=== PATIENT | male | born 1985 | race Hispanic/Latino ===

== ENCOUNTER 2024-03-07 13:38 | Emergency (ER) | payer BC, SELFPAY ==
[2024-03-07] MEDS ORDERED: NA CHLORIDE 0.9% 1,000 ML ONE (14:42)
[2024-03-07 14:50] LABS: Urine Bilirubin NEGATIVE (Negative); Urine Blood Negative (Negative); Urine Clarity Clear (Clear); Urine Color Light-Yellow (Yellow); Urine Glucose NEGATIVE (Negative); Urine Ketones NEGATIVE (Negative); Urine Microscopic Reflex YN NO UMIC; Urine Nitrite NEGATIVE (Negative); Urine Protein NEGATIVE (Negative); Urine Urobilinogen Normal (Normal)
[2024-03-07 14:50] LABS: Absolute Basophils 0.1 K/uL (0-0.5); Absolute Eosinophils 0.1 K/uL (0-0.5); Absolute Lymphocytes (CBC) 1.7 K/uL (0.7-4.9); Absolute Monocytes 0.8 K/uL (0.1-1.3); Absolute Neutrophil 7.3 K/uL (1.8-8.0); Basophils % 0.7 % (0-1.3); Eosinophils % 0.6 % (0-4.4); Hematocrit 44.9 % (39.6-49.0); Hemoglobin 15.4 g/dL (13.6-17.9); Lymphocytes % 16.8 % (15.3-44.8); MCH 32.1 pg (27.0-35.0); MCHC 34.3 g/dL (32.0-36.0); MCV 93.6 fL (80-100); MPV 9.5 fL (7.6-11.3); Monocytes % 8.5 % (3.3-12.3); Neutrophils % 73.4 % (41.7-73.7); Platelets 248 thou/uL (152-406); RBC Red Blood Cell Count 4.79 M/uL (4.33-5.43); Red Cell Distribution Width 12.5 % (12.1-15.2)
--- OUTSIDE RECORDS SUMMARY | 2024-03-07 14:50 | XMS REPORT | Continuity of Care Document ---
Author Name Unknown Address [address] [place] [address] [facility] Address [address] [place] [address] Care Team Providers Care Drawing Box Tender Name Role Phone RENETTA OBRIEN Primary Care Physician Unavailab BETHEL Hatch Attending Clinician Unavailable BETHEL BLACKMON Attending Clinician Unavailable Doctor Unassigned, [place] Attending Clinician U RENETTA Elizabeth Attending Clinician Unavailable 2, [facility] Attending Clinician Unavailable Renetta Mcgowan Attending Clinician [phone] ABHAY LAM Attending Clinician Unavailable GENARO CROWLEY Attending Clinician Unavailable Genaro Crowley MD Attending Clinician [phone] CHEYENNE JUAREZ Attending Clinician Unavailable Cheyenne Oritz Attending Clinician [phone] Unknown, Attending Attending Clinician Unavailab [facility] Attending Clinician Unavailable Aries Cancino RN Attending Clinician UnavailOVI Hudson Attending Clinician Unavailable Ovi Gavin Attending Clinician [phone] Estefani Harris Attending Clinician [phone] ESTEFANI LEHMAN Attending Clinician Unavailable Katelyn Vogel MD Attending Clinician [phone] KATELYN VOGEL Attending Clinician Unavailable Samantha Lizarraga NP Attending Clinician [phone] SAMANTHA LIZARRAGA Attending Clinician Unavailable Móinca Hdz Attending Clinician MÓNICA ALCALA Attending Clinician Unavailabl e SAMANTHA LIZARRAGA Admitting Clinician Unavailable MÓNICA ALCALA Admitting Clinician Unavailrell e Payers Payer Name Policy Type Policy Number Effective Date Expirati on Date Source [facility] [id number] 2022 00:00:00 [facility] [id number] 2019 00:00:00 2019 00:00:00 Problems Condition Name Condition Details Condition Category Status Onset Date Resolution Date Last Treatment Date Treating Clinician Comments Source No known active problems No known active problems Disease [facility] Allergies, Adverse Reactions, Alerts Allergy Name Allergy Type Status Severity Reaction(s) Onset Date Inactive Date Treating Clinician Comments Source NO KNOWN ALLERGIE S Drug Class Active [facility] Social History Social Habit Start Date Stop Date Quantity Comments Source History SDOH Alcohol Frequency [facility] History SDOH Alcohol Std Drinks [facility] History SDOH Alcohol Binge [facility] of tobacco use Current smoker [facility] Alcohol intake 2023-10-29 00:00:00 2023-10-29 00:00:00 .57 /d [facility] Alcohol Comment 2023-10-29 00:00:00 2023-10-29 00:00:00 occassionally/so cially [facility] History of Social function 2023-10-29 00:00:00 2023-10-29 00:00:00 [facility] Alcoholic beverage intake 2023-10-29 00:00:00 2023-10-29 00:00:00 .57 /d [facility] Exposure to SARS-CoV-2 (event) 2022-11-13 00:00:00 2022-11-23 09:04:00 Not sure [facility] Tobacco use and exposure 2022-05-19 00:00:00 2022-05-19 00:00:00 Smokeless tobacco non-user [facility] Sex assigned at 1985 00:00:00 1985 00:00:00 [facility] Smoking Status Start Date Stop Date Source Ex-smoker 2022-05-19 00:00:00 2022-05-19 00:00:00 U [facility] Medications Ordered Medication Name Filled Medication Name Start Date Stop Date Current Medication? Ordering Clinician Indication Dosage Frequency Signature (SIG) Comments Components Source atorvastati n 40 mg tablet 10-28 08:15: 18 10-28 00:00 :00 No 40mg Take 1 tablet by mouth at bedtime. [facility] ondansetron 4 mg disintegrat ing tablet 2022-07 00:00: 00 Yes [id number] 4mg Take 1 tablet by mouth every 4 (four) hours as needed for Nausea and Vomiting (N/V). [facility] oseltamivir (TAMIFLU) 75 mg capsule 2022-07 00:00: 00 Yes [id number] 75mg Take 1 capsule by mouth in the morning and 1 capsule in the evening. [facility] loratadine 10 mg tablet 2022-07 00:00: 00 10-28 00:00 :00 No [id number] 10mg Take 1 tablet by mouth in the morning. [facility] naproxen 500 mg tablet 2022-07 00:00: 00 07-20 05:59 :00 No [id number] 500mg Take 1 tablet by mouth in the morning and 1 tablet in the evening. Take with meals. Do all this for 10 days. [facility] benzonatate 100 mg capsule 2021-07 00:00: 00 10-28 00:00 :00 No [id number] 200mg Take 2 capsules by mouth every 8 (eight) hours as needed for Cough. [facility] promethazin e-dextromet horphan 6.25-15 mg/5 mL syrup 2021-07 00:00: 00 10-28 00:00 :00 No [id number] 5mL Take 5 mL by mouth 4 (four) times daily as needed for Cough. [facility] methocarbam oL (ROBAXIN) tablet 1,500 mg 2020-07 03:00: 00 05-05 01:55 :00 No 1500mg 1,500 mg, Oral, ONCE, 1 dose, On Wed05/04/21 at 2200, Routine [facility] gabapentin (NEURONTIN) capsule 200 mg 2020-07 03:00: 00 05-05 01:56 :00 No 200mg 200 mg, Oral, ONCE NOW, 1 dose, On Wed05/04/21 at 2200, Routine [facility] dexamethaso ne (DECADRON PHOSPHATE) injection 10 mg 2020-07 03:00: 00 05-05 01:55 :00 No 10mg 10 mg, Slow IV Push, ONCE, 1 dose, On Wed05/04/21 at 2200, STAT [facility] ketorolac (TORADOL) injection 30 mg 2020-07 03:00: 00 05-05 01:54 :00 No 30mg 30 mg, Slow IV Push, ONCE, 1 dose, On Wed05/04/21 at 2200, Routine
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 [facility] methocarbam oL 500 mg tablet 2020-07 00:00: 00 05-10 04:59 :00 No [id number] 4 1500mg Take 3 tablets by mouth 4 (four) times daily as needed (spasms) for up to 5 days. [facility] methylPREDN ISolone 4 mg tablets 2020-07 00:00: 00 10-28 00:00 :00 No [id number] 4 Take by mouth SEE-INSTRU CTIONS. follow package directions [facility] cyclobenzap rine 10 mg tablet 2017-07 00:00: 00 10-28 00:00 :00 No [id number] 10mg Take 1 tablet by mouth 3 (three) times daily as needed for Muscle Spasms. [facility] fluticasone 50 mcg/actuati on nasal spray 02-22 00:00: 00 10-28 00:00 :00 No [id number] 2{spray } Use 2 Sprays in each nostril daily. [facility] Vital Signs Vital Name Observation Time Observation Value Comments S ource Systolic blood pressure 2023-10-29 13:06:00 114 mm[Hg] [facility] Diastolic blood pressure 2023-10-29 13:06:00 79 mm[Hg] [facility] Heart rate 2023-10-29 13:06:00 84 /min [facility] Body temperature 2023-10-29 13:06:00 36.72 Rosetta [facility] Body height 2023-10-29 13:06:00 177.8 cm [facility] Body weight 2023-10-29 13:06:00 83.416 kg [facility] BMI 2023-10-29 13:06:00 26.39 kg/m2 [facility] Oxygen saturation in Arterial blood by Pulse oximetry 2023-10-29 13:06:00 97 /min [facility] Systolic blood pressure 2023-07-09 12:53:00 129 mm[Hg] [facility] Diastolic blood pressure 2023-07-09 12:53:00 103 mm[Hg] [facility] Heart rate 2023-07-09 12:53:00 64 /min [facility] Body temperature 2023-07-09 12:53:00 37 Rosetta [facility] Respiratory rate 2023-07-09 12:53:00 16 /min [facility] Body height 2023-07-09 12:53:00 177.8 cm [facility] Body weight 2023-07-09 12:53:00 78.926 kg [facility] BMI 2023-07-09 12:53:00 24.97 kg/m2 [facility] Oxygen saturation in Arterial blood by Pulse oximetry 2023-07-09 12:53:00 98 /min [facility] Systolic blood pressure 2022-11-23 14:15:00 107 mm[Hg] [facility] Diastolic blood pressure 2022-11-23 14:15:00 80 mm[Hg] [facility] Heart rate 2022-11-23 14:15:00 69 /min [facility] Body temperature 2022-11-23 14:15:00 36.44 Rosetta [facility] Respiratory rate 2022-11-23 14:15:00 17 /min [facility] Body weight 2022-11-23 14:15:00 83.008 kg [facility] BMI 2022-11-23 14:15:00 26.26 kg/m2 [facility] Oxygen saturation in Arterial blood by Pulse oximetry 2022-11-23 14:15:00 98 /min [facility] Systolic blood pressure 2022-10-01 20:49:00 128 mm[Hg] [facility] Diastolic blood pressure 2022-10-01 20:49:00 84 mm[Hg] [facility] Heart rate 2022-10-01 20:49:00 71 /min [facility] Body temperature 2022-10-01 20:49:00 36.83 Rosetta [facility] Respiratory rate 2022-10-01 20:49:00 17 /min [facility] Body height 2022-10-01 20:49:00 177.8 cm [facility] Body weight 2022-10-01 20:49:00 82.691 kg [facility] BMI 2022-10-01 20:49:00 26.16 kg/m2 [facility] Oxygen saturation in Arterial blood by Pulse oximetry 2022-10-01 20:49:00 98 /min [facility] Systolic blood pressure 2022-08-21 14:10:00 129 mm[Hg] [facility] Diastolic blood pressure 2022-08-21 14:10:00 86 mm[Hg] [facility] Heart rate 2022-08-21 14:10:00 69 /min [facility] Body height 2022-08-21 14:10:00 177.8 cm [facility] Body weight 2022-08-21 14:10:00 80.74 kg [facility] BMI 2022-08-21 14:10:00 25.54 kg/m2 [facility] Oxygen saturation in Arterial blood by Pulse oximetry 2022-08-21 14:10:00 99 /min [facility] Systolic blood pressure 2022-08-05 15:33:00 124 mm[Hg] [facility] Diastolic blood pressure 2022-08-05 15:33:00 84 mm[Hg] [facility] Heart rate 2022-08-05 15:32:00 85 /min [facility] Body temperature 2022-08-05 15:32:00 36.89 Rosetta [facility] Respiratory rate 2022-08-05 15:32:00 16 /min [facility] Body weight 2022-08-05 15:32:00 80.74 kg [facility] BMI 2022-08-05 15:32:00 25.54 kg/m2 [facility] Oxygen saturation in Arterial blood by Pulse oximetry 2022-08-05 15:32:00 97 /min [facility] Systolic blood pressure 2022-05-19 22:23:00 115 mm[Hg] [facility] Diastolic blood pressure 2022-05-19 22:23:00 77 mm[Hg] [facility] Heart rate 2022-05-19 22:23:00 102 /min [facility] Body temperature 2022-05-19 22:23:00 36.89 Rosetta [facility] Respiratory rate 2022-05-19 22:23:00 18 /min [facility] Body height 2022-05-19 22:23:00 177.8 cm [facility] Body weight 2022-05-19 22:23:00 82.81 kg [facility] BMI 2022-05-19 22:23:00 26.19 kg/m2 [facility] Oxygen saturation in Arterial blood by Pulse oximetry 2022-05-19 22:23:00 98 /min [facility] Systolic blood pressure 2021-05-05 02:00:00 152 mm[Hg] [facility] Diastolic blood pressure 2021-05-05 02:00:00 88 mm[Hg] [facility] Heart rate 2021-05-05 02:00:00 72 /min [facility] Respiratory rate 2021-05-05 02:00:00 17 /min [facility] Oxygen saturation in Arterial blood by Pulse oximetry 2021-05-05 02:00:00 98 /min [facility] Body temperature 2021-05-05 01:10:00 36.83 Rosetta [facility] Body height 2021-05-05 01:10:00 177.8 cm [facility] Body weight 2021-05-05 01:10:00 86.183 kg [facility] BMI 2021-05-05 01:10:00 27.26 kg/m2 [facility] Procedures Procedure Date / Time Performed Performing Clinician Source ASSIGNMENT OF BENEFITS 2023-07-09 13:30:01 Docto r Unassigned, [place] [facility] RAPID INFLUENZA A/B 2023-07-09 13:04:00 Carie Crowley [facility] COVID-19 (ID NOW RAPID TESTING) 2023-07-09 13:04:00 Genaro Crowley [facility] CONSENT/REFUSAL FOR DIAGNOSIS AND TREATMENT 2023-07-09 12:44:46 Doctor Unassigned, [place] [facility] POCT MOLECULAR STREP 2022-11-23 14:13:00 Estefanía, Rowan horan [facility] POCT SARS-COV-2 ANTIGEN (BINAX NOW) 2022-10-01 21:31:00 Ovi Nunez [facility] POCT MOLECULAR FLU 2022-10-01 21:21:00 Unknown, Attend [facility] POCT MOLECULAR STREP 2022-10-01 20:53:00 Unknown, Attdavid horan [facility] PATIENT FINANCIAL POLICY 2022-10-01 20:45:27 Doctor Unassigned, [place] [facility] XR FOOT 3+ VW LEFT 2022-08-05 15:56:38 Ovi Nunez [facility] ASSIGNMENT OF BENEFITS 2022-08-05 15:28:24 Docto r Unassigned, [place] [facility] POCT MOLECULAR FLU 2022-05-19 22:40:00 Unknown, Attend [facility] POCT MOLECULAR STREP 2022-05-19 22:33:00 Unknown, Attdavid horan [facility] POCT SARS-COV-2 ANTIGEN (BINAX NOW) 2022-05-19 22:30:00 Katelyn Vogel [facility] CONSENT/REFUSAL FOR DIAGNOSIS AND TREATMENT 2022-05-19 22:17:49 Doctor Unassigned, [place] [facility] CT STROKE ANGIOGRAM HEAD 2021-05-05 02:30:00 Arley Lizarraga [facility] CT STROKE ANGIOGRAM NECK 2021-05-05 02:30:00 Arley Lizarraga [facility] CT CERVICAL SPINE WO CONTRAST 2021-05-05 02:23:00 Samantha Lizarraga [facility] CT HEAD WO CONTRAST 2021-05-05 02:23:00 Samantha Lizarraga [facility] COMP. METABOLIC PANEL ([id number]) 2021-05-05 01:49:00 Samantha Lizarraga [facility] ETHANOL 2021-05-05 01:49:00 Samantha Lizarraga [facility] SEDIMENTATION RATE 2021-05-05 01:49:00 Samantha Lizarraga [facility] CBC WITH DIFF 2021-05-05 01:49:00 Samantha Lizarraga [facility] URINALYSIS 2021-05-05 01:49:00 Samantha Lizarraga [facility] URINE DRUG (IMMUNOASSAY) - COMPREHENSIVE DRUG SCREEN W/O REFLEX 2021-05-05 01:49:00 Samantha Lizarraga [facility] POCT GLUCOSE (AUTOMATED) 2021-05-05 01:06:00 Doc tor Unassigned, [place] [facility] Encounters Start Date/Time End Date/Time Encounter Type Admission Type Attending [facility] Care Department Encounter ID Source 2024-02-16 19:18:00 2024-02-16 21:44:00 Emergency X BETHEL BLACKMON [facility] ERT [id number] [facility] 2023-11-11 00:00:00 2023-12-18 18:12:45 Patient Secure Msg Doctor Unassigned, [place] [facility] MÓNICA GILLESPIE PLAZACHARY 1.2.840.114 350.1.13.10 4.2.7.2.686 [id number] [facility] 2023-11-01 00:00:00 2023-12-04 18:08:39 Patient Secure Msg Doctor Unassigned, [place] [facility] 1.2.840.114 350.1.13.10 4.2.7.2.686 [id number] [facility] 2023-11-12 14:30:00 2023-11-12 14:30:00 Outpatient RENETTA MCKEON [facility] [id number] [facility] 2023-10-29 10:30:00 2023-10-29 10:45:00 Qa Manager Visit 2, Adc Lab Yon Obrienssica [facility] 1.2.840.114 350.1.13.10 4.2.7.2.686 [id number] [facility] 2023-10-29 10:00:00 2023-10-29 10:00:00 Outpatient ABHAY JEAN [facility] [id number] [facility] 2023-10-29 08:00:00 2023-10-29 08:31:55 Outpatient RENETTA MCKEON [facility] [id number] [facility] 2023-10-29 08:00:00 2023-10-29 08:31:55 Office Visit Renetta Obrien [facility] 1.2.840.114 350.1.13.10 4.2.7.2.686 [id number] [facility] 2023-10-29 00:00:00 2023-10-29 00:00:00 Letter (Out) Yon Obrienssica [facility] 1.2.840.114 350.1.13.10 4.2.7.2.686 [id number] [facility] 2023-10-29 00:00:00 2023-10-29 00:00:00 [facility] 1..840.114 350.1.13.10 4.2.7.2.686 [id number] [facility] 2023-07-09 06:55:00 2023-07-09 08:44:00 Emergency X GENARO CROWLEY [facility] [id number] [facility] 2023-07-09 06:55:00 2023-07-09 08:44:00 Emergency Keo Genaro [facility] 1..840.114 350.1.13.10 4.2.7.2.686 [id number] [facility] 2022-11-23 09:00:00 2022-11-23 09:29:54 Outpatient R CHEYENNE JUAREZ [facility] [id number] [facility] 2022-11-23 09:00:00 2022-11-23 09:29:54 Urgent Care Cheyenne Juarez Unknown, Attending [facility] 1..840.114 350.1.13.10 4.2.7.2.686 [id number] [facility] 2022-11-23 00:00:00 2022-11-23 00:00:00 Letter (Out) Provider, Christopher [facility] 1.84.114 350.1.13.10 4.2.7.2.686 [id number] [facility] 2022-10-02 00:00:00 2022-10-02 00:00:00 Letter (Out) Aries Cancino [facility] 1..114 350.1.13.10 4.2.7.2.686 [id number] [facility] 2022-10-01 15:40:00 2022-10-01 16:36:00 Outpatient R OVI NUNEZ [facility] [id number] [facility] 2022-10-01 15:40:00 2022-10-01 16:36:00 Urgent Care Ovi Nunez Unknown, Attending [facility] 1.84114 350.1.13.10 4.2.7.2.686 [id number] [facility] 2022-10-01 00:00:00 2022-10-01 00:00:00 Orders Only Doctor Unassigned, [place] [facility] 1.114 350.1.13.10 4.2.7.2.686 [id number] [facility] 2022-08-21 08:15:00 2022-08-21 08:45:00 Office Visit Estefani Lehman [facility] 1.84.114 350.1.13.10 4.2.7.2.686 [id number] [facility] 2022-08-21 08:15:00 2022-08-21 08:15:00 Outpatient R ESTEFANI LEHMAN [facility] [id number] [facility] 2022-08-21 00:00:00 2022-08-21 00:00:00 Letter (Out) Estefani Lehman [facility] 1.2840.114 350.1.13.10 4.2.7.2.686 [id number] [facility] 2022-08-05 09:44:02 2022-08-05 23:59:00 Outpatient R OVI NUNEZ [facility] [id number] [facility] 2022-08-05 09:44:02 2022-08-05 23:59:00 Hospital Encounter Greg Nunezjaime [facility] 1.84114 350.1.13.10 4.2.7.2.686 [id number] [facility] 2022-08-05 09:20:00 2022-08-05 10:08:21 Urgent Care FredyOvi lea Unknown, Attending [facility] 1.20.114 350.1.13.10 4.2.7.2.686 [id number] [facility] 2022-08-05 00:00:00 2022-08-05 00:00:00 Orders Only Doctor Unassigned, [place] [facility] 1.114 350.1.13.10 4.2.7.2.686 [id number] [facility] 2022-08-05 00:00:00 2022-08-05 00:00:00 Letter (Out) Greg Nunezjaime [facility] 1.284114 350.1.13.10 4.2.7.2.686 [id number] [facility] 2022-05-19 19:20:00 2022-05-19 19:40:00 Urgent Care Katelyn Vogel Unknown, Attending [facility] 1.2.840.114 350.1.13.10 4.2.7.2.686 [id number] [facility] 2022-05-19 19:20:00 2022-05-19 19:20:00 Outpatient R KATELYN VOGEL [facility] [id number] [facility] 2022-05-19 00:00:00 2022-05-19 00:00:00 Orders Only Doctor Unassigned, [place] [facility] 1..840.114 350.1.13.10 4.2.7.2.686 [id number] [facility] 2021-05-04 20:07:00 2021-05-04 22:45:00 Emergency Samantha Lizarraga [facility] 1..840.114 350.1.13.10 4.2.7.2.686 [id number] [facility] 2021-05-04 20:07:00 2021-05-04 22:45:00 Emergency X SAMANTHA LIZARRAGA [facility] ERT [id number] [facility] 2020-10-17 00:00:00 2020-10-17 00:00:00 Patient [facility] 1..840.114 350.1.13.10 4.2.7.2.686 [id number] [facility] 2019-07-18 14:11:49 2019-07-18 23:59:00 Outpatient R MÓNICA ALCALA [facility] [id number] [facility] Results Test Description Test Time Test Comments Results Result Co mments Source [facility] [id number] 21:33:39* Test Item Value Reference Range Interpretation Comme nts POCT Molecular FluA (test co de = 86423-3) Negative Negative POCT Molecular FluB (test co de = 70138-4) Negative Negative Lab Interpretation (test cod e = 61268-7) Normal [facility] SARS-COV-2 ANTIGEN (BINAX NOW)2022-10-01 21:31:00* Test Item Value Reference Range Interpretation Comme nts POCT SARS-COV-2 ANTIGEN (test code = 45993-3) Not Detected Not Detected On board controls acceptable with C Line (test code = 3574) Yes DENEEN (test code = DENEEN) accurate developme nt and interpretation of all internal controls Lab Interpretation (test code = 74238-1) Normal [facility] MOLECULAR [id number] 21:01:05* Test Item Value Reference Range Interpretation Comme nts POCT Molecular Strep (test c ode = 23047-1) Negative Negative Lab Interpretation (test cod e = 58386-7) [facility] MOLECULAR [id number] 22:52:40* Test Item Value Reference Range Interpretation Comme nts POCT Molecular FluA (test co de = 78325-8) Negative Negative POCT Molecular FluB (test co de = 03054-4) Negative Negative Lab Interpretation (test cod e = 95682-0) [facility] SARS-COV-2 ANTIGEN (BINAX NOW)2022-05-19 22:46:00* Test Item Value Reference Range Interpretation Comme nts POCT SARS-COV-2 ANTIGEN (katherin t code = 92604-4) Not Detected Not Detected On board controls acceptable with C Line (test code = 3574) Yes Lab Interpretation (test cod e = 74276-5) Normal [facility] MOLECULAR [id number] 22:40:54* Test Item Value Reference Range Interpretation Comme nts POCT Molecular Strep (test c ode = 24788-0) Negative Negative Lab Interpretation (test cod e = 21542-6) Normal [facility] [id number] 02:41:39* Test Item Value Reference Range Interpretation Comme nts ESR (test code = 4596507955) See_Comment H [Automated messa ge] The system which generated this result transmitted reference range: 0 - 10 mm/HR. The reference range was not used to interpret this result as normal/abnormal. Lab Interpretation (test code = 34889-8) Abnormal [facility] 02:11:37* Test Item Value Reference Range Interpretation Comme nts ALCOHOL (test code = 0818014963) 66 mg/dL DENEEN (test code = DENEEN) <10 Nzmenzha22-180 Toxic>100 Depression of DISPENSING AND MEASURING OPTICIAN>400 Fatalities Reported [facility] (96479)2021-05-05 02:10:57* Test Item Value Reference Range Interpretation Comme nts NA (test code = 2960540700) 141 mmol/L 135-145 K (test code = 9984809554) 3.6 mmol/L 3.5-5.0 CL (test code = 8705291666) 104 mmol/L 98-108 CO2 TOTAL (test code = 9375724132) 26 mmol/L 23-31 AGAP (test code = 9060958099) 2-16 BUN (test code = 4860712162) 13 mg/dL 7-23 GLUCOSE (test code = 8542511265) 89 mg/dL 70-110 CREATININE (test code = 6190304942) 1.07 mg/dL 0.60-1.25 TOTAL BILI (test code = 4873544817) 0.5 mg/dL 0.1-1.1 CALCIUM (test code = 8578495837) 9.4 mg/dL 8.6-10.6 T PROTEIN (test code = 7386550927) 7.7 g/dL 6.3-8.2 ALBUMIN (test code = 4555830438) 4.7 g/dL 3.5-5.0 ALK PHOS (test code = 1117111014) 76 U/L 34-122 ALTv (test code = 1742-6) 34 U/L 5-50 AST(SGOT) (test code = 4128848070) 33 U/L 13-40 eGFR (test code = 5973263781) mL/min/1.73m2 DENEEN (test code = DENEEN) Association of Glomerular Filtration Rate (GFR) and Staging of Kidney Disease* + + +- +| GFR (mL/min/1.73 m2) ?| With Kidney Damage ?| ?Without Kidney Damage+ ------+ ----+ ------+| ?>90 ?| ?Stage one ?| ? Normal ?+ -+ + -+| ?60-89 ?| ?Stage two ?| ? Decreased GFR ? + + +- +| ?30-59 ?| ?Stage three ?| ? Stage three ? + + +- +| ?15-29 ?| ?Stage four ? | ? Stage four ?+ -+ + -+| ?<15 (or dialysis) ? ?| ?Stage five ? | ? Stage five ?+ -+ + -+ *Each stage assumes the associated GFR level has been in effect for at least three months. ?Stages 1 to 5, with or without kidney disease, indicate chronic kidney disease. Notes: Determination of stages one and two (with eGFR >59mL/min/1.73 m2) requires estimation of kidney damage for at least three months as defined by structural or functional abnormalities of the kidney, manifested by either:Pathological abnormalities or Markers of kidney damage (including abnormalities in the composition of the blood or urine or abnormalities in imaging tests). [facility] WITH [id number] 01:59:36* Test Item Value Reference Range Interpretation Comme nts WBC (test code = 6690-2) See_Comment [Coupang] The system which generated this result transmitted reference range: 4.20 - 10.70 10*3/?L. The reference range was not used to interpret this result as normal/abnormal. RBC (test code = 789-8) See_Comment [Coupang] The system which generated this result transmitted reference range: 4.26 - 5.52 10*6/?L. The reference range was not used to interpret this result as normal/abnormal. HGB (test code = 718-7) 15.7 g/dL 12.2-16.4 HCT (test code = 4544-3) 45.6 % 38.4-49.3 MCV (test code = 787-2) 94.0 fL 81.7-95.6 MCH (test code = 785-6) 32.4 pg 26.1-32.7 MCHC (test code = 786-4) 34.4 g/dL 31.2-35.0 RDW-SD (test code = 64281-3) 38.5 fL 38.5-51.6 RDW-CV (test code = 788-0) 11.2 % 12.1-15.4 L PLT (test code = 777-3) See_Comment [Automated messa ge] The system which generated this result transmitted reference range: 150 - 328 10*3/?L. The reference range was not used to interpret this result as normal/abnormal. MPV (test code = 63581-4) 11.8 fL 9.8-13.0 NRBC/100 WBC (test code = 3988060746) See_Comment [Automated Umbel ssage] The system which generated this result transmitted reference range: 0.0 - 10.0 /100 WBCs. The reference range was not used to interpret this result as normal/abnormal. NRBC x10^3 (test code = 9829541496) <0.01 See_Comment [Automated messa ge] The system which generated this result transmitted reference range: 10*3/?L. The reference range was not used to interpret this result as normal/abnormal. GRAN MAT (NEUT) % (test code = 770-8) 58.1 % IMM GRAN % (test code = 2090008806) 0.40 % LYMPH % (test code = 736-9) 31.0 % MONO % (test code = 5905-5) 8.3 % EOS % (test code = 713-8) 1.7 % BASO % (test code = 706-2) 0.5 % GRAN MAT x10^3(ANC) (test code = 8125495177) 4.48 10*3/uL 1.99-6.95 IMM GRAN x10^3 (test code = 5448317249) 0.03 10*3/uL 0.00-0.06 LYMPH x10^3 (test code = 731-0) 2.39 10*3/uL 1.09-3.23 MONO x10^3 (test code = 742-7) 0.64 10*3/uL 0.36-1.02 EOS x10^3 (test code = 711-2) 0.13 10*3/uL 0.06-0.53 BASO x10^3 (test code = 704-7) 0.04 10*3/uL 0.01-0.09 Lab Interpretation (test code = 21923-6) [facility]:08:08* Test Item Value Reference Range Interpretation Comme nts POCT GLU (test code = 3935862576) 89 mg/dL 70-110 Lab Interpretation (test cod e = 41397-1) Normal [facility] Notes Date/Time Note Provider Source 2023-11-01 15:53:16 Message forwarded to pt via [employer]. Loree Gayle RN [facility] 2023-11-01 15:44:32 It is not bad for you. You can continue, this is why the TSH looks below normal. It is just because of the biotin. Other thyroid test is normal so no concerns Keto diet is ok [facility] 2023-11-01 08:45:54 Images from the original note were not included. LVM to inform of lab results, [employer] message sent. Renetta Obrien FNP [facility] Med Nurse TSH is low, are you taking vitamins with Biotin in them? Your natural lipid profile shows elevation, the kind of cholesterol that increases risk of atherosclerotic plaques or "hardening of the arteries." You can help yourself by observing a low saturated fat and no trans-fat diet. This means choosing the lowest fat gram content you can on your grocery labeling. Choose lower fat dairy choices in particular and minimize use of butter and oils. Pork and beef have higher fat content. If you do select these, trim the fat and choose the leanest cuts. Steer more toward "feathers and fins, " meaning poultry and fish. Shell fish are intermediate fat choices Prepare your foods with little oil---avoid frying. Instead choose to grill, broil, boil, and bake. You can lower triglycerides by taking over the counter fish oil. You can take up to 1 g three times a day. Testosterone is normal range And other thyroid labs are normal Loree Gayle RN [facility] 2023-10-29 16:51:25 Copied from [facility] #[id number]. Topic: Clinical - Results >> Oct 29, 2023 4:48 PM Patient Supervisor Lathing wrote: ,Michelle Curry is a 38 year old male Patient is asking if he can receive a call to go over results - pt asking for detailed message if he does not answer [phone] (home) Barbara Cortes [facility] 2023-10-29 10:30:00 Images from the original note were not included. Patient has been identified by and was provided with cup, antiseptic towelette, and clean catch instructions. 1 urine specimen(s) sent. Unpreserved 1 Urine Culture Aptima tube Other urine Venipuncture collection performed by clean technique on the left anticubitus. Total of 1 attempts were made. Slight pressure and a bandage/dressing were applied to the site(s). The patient experienced no complications. The following specimens were processed according to instructions and sent to [facility] laboratories per lab order on 10/29/2023 : LT BLUE SST 3 RED LAV 2 PPT DK GREEN (LiHep) DK GREEN (SodH) FRANKEL DK BLUE (K2) DK BLUE (S) ACD Blood Culture NIPT/NTD [facility] 2023-07-09 08:44:35 PT D/C home. GCS15, VS stable, no ataxia noted. Given four prescriptions and D/C paperwork. S/S relieved at this time. Pt ambulatory at time of discharge. Pt educated on viral illness, med usage, follow up care, s/s worsening condition. Pt verbalized understanding. LIS Daugherty RN [facility] 2023-07-09 06:52:51 Patient states: "I sweated out the bed so my told me to come get checked" Reports body aches, fatigue that started yesterday. Pmhx: none LIS Elise RN [facility]
[2024-03-07 14:57] LABS: PT Prothrombin Time 11.1 SECONDS (9.4-12.5); PTT, Activated Partial Thromb 28.8 SECONDS (24.3-36.9); Protime INR 0.99
[2024-03-07 15:02] LABS: Barbiturates NEGATIVE (NEGATIVE); Benzodiazepines NEGATIVE (NEGATIVE); Cocaine NEGATIVE (NEGATIVE); METHAMPHETAM NEGATIVE (NEGATIVE); Methadone NEGATIVE (NEGATIVE); Opiates NEGATIVE (NEGATIVE); Phencyclidine NEGATIVE (NEGATIVE); THC Cannibis NEGATIVE (NEGATIVE)
--- NOTE | 2024-03-07 15:07 | RAD REPORT ---
EXAM DESCRIPTION: CT - Head Brain Wo Cont - 03/07/2024 2:29 pm CLINICAL HISTORY: SYNCOPE COMPARISON: No comparisons TECHNIQUE: Noncontrast head CT images were obtained without IV contrast. Multiplanar reformats were generated and reviewed. All CT scans are performed using dose optimization technique as appropriate and may include automated exposure control or mA/KV adjustment according to patient size. FINDINGS: No intracranial hemorrhage, mass, or edema. Midline structures are unremarkable. Normal ventricular caliber for age. Parikh-white matter differentiation is preserved, without evidence of acute infarct. No abnormal extra- axial fluid collections. Mastoid air cells and visualized portions of the paranasal sinuses are clear. No acute bony findings. IMPRESSION: No evidence of an acute intracranial process.
--- NOTE | 2024-03-07 15:16 | RAD REPORT ---
EXAM DESCRIPTION: Aiden Single View03/07/2024 2:29 pm CLINICAL HISTORY: CHEST PAIN COMPARISON: No comparisons TECHNIQUE: Portable AP view of the chest. FINDINGS: The lungs are clear. No pneumothorax or effusion. The cardiomediastinal contours are unre markable. IMPRESSION: No acute cardiopulmonary process.
[2024-03-07 15:20] LABS: ALT/SGPT 29 U/L (16-61); Albumin/Globulin Ratio 1.2 (1.1-1.8); Alkaline Phosphatase 95 U/L (45-117); Anion Gap 9.9 mEq/L (5.0-15.0); BUN Blood Urea Nitrogen 16 mg/dL (7-18); Bicarbonate 29 mEq/L (21-32); Bilirubin Total 0.6 mg/dL (0.2-1.0); Globulin 3.4 g/dL (2.3-3.5); Glomerular Filtration Rate 67 ml/min (=/>90); Glucose Level 107 mg/dL (74-106); Protein, Total 7.4 g/dL (6.4-8.2); Sodium Level 138 mEq/L (136-145)
[2024-03-07 15:21] LABS: AST/SGOT 20 U/L (15-37); Bilirubin Direct < 0.2 mg/dL (0-0.2); Bilirubin Indirect, Calculated 0.4 mg/dL (0.2-0.8); Magnesium 2.2 mg/dL (1.6-2.4); Potassium 3.9 mEq/L (3.5-5.1)
--- NOTE | 2024-03-07 15:38 | EDPHYS ---
Physician Documentation [facility] Name: Derek Curry Age: 38 yrs Sex: Male : 1985 Arrival Date: 03/07/2024 Time: 13:38 Bed 11 Private MD: ED Physician Igor Roberts HPI: 03/07 13:46 This 38 yrs old Male presents to ER via Unassigned with complaints of heat sb4 syncope. 13:46 The patient has experienced syncope, collapsed. Onset: The symptoms/episode sb4 began/occurred just prior to arrival. Duration: This was a single episode. Context: the episode(s) was witnessed, by co-worker(s), occurred outdoors, at work, occurred while the patient was working, Just prior to the episode the patient experienced no apparent symptoms. Associated injury: The patient did not suffer any apparent associated injury. Associated signs and symptoms: The patient has no apparent associated signs or symptoms. Current symptoms: tired, thirsty. The patient has experienced a previous episode. The patient has not recently seen a physician. Historical: - Allergies: 14:12 No Known Allergies; me1 - Home Meds: 14:12 None [Active]; me1 - PMHx: 14:12 None; me1 - Immunization history:: Adult Immunizations up to date. - Infectious Disease History:: Denies. - Social history:: Smoking status: Patient denies any tobacco usage or history of. ROS: 13:46 Constitutional: Negative for fever, chills, and weight loss, sb4 13:46 Neuro: Positive for syncope, 13:46 All other systems are negative, Exam: 13:46 Head/Face: Normocephalic, atraumatic. Eyes: Extra-ocular motions intact. Periorbital sb4 areas with no swelling, redness, or edema. ENT: Mucous membranes moist. Cardiovascular: Regular rate and rhythm with a normal S1 and S2. Respiratory: Lungs have equal breath sounds bilaterally, clear to auscultation and percussion. No rales, rhonchi or wheezes noted. No increased work of breathing, no retractions or nasal flaring. Abdomen/GI: Soft, non-tender, no distension. Skin: Warm, dry with normal turgor. Normal color with no rashes, no lesions, and no evidence of cellulitis. MS/ Extremity: Pulses equal, no cyanosis. Neurovascular intact. Full, normal range of motion. Neuro: Awake and alert, GCS 15, oriented to person, place, time, and situation. Motor strength 5/5 in all extremities. Sensory grossly intact. 13:46 Constitutional: The patient appears in no acute distress, alert, sleepy Vital Signs: 14:08 BP 135 / 89; Pulse 84; Resp 18; Temp 98.9; Pulse Ox 100% on R/A; Weight 81.65 kg; me1 Height 5 ft. 10 in. ; Pain 0/10; 14:45 BP 140 / 96; Pulse 77; Resp 16; Pulse Ox 100% ; me1 15:15 BP 144 / 91; Pulse 77; Resp 14; Pulse Ox 100% on R/A; me1 16:05 BP 145 / 93; Pulse 88; Resp 16; Temp 98.4; Pulse Ox 99% ; me1 14:08 Body Mass Index 25.83 (81.65 kg, 177.8 cm) me1 14:08 Pain Scale: Adult me1 MDM: 13:45 Patient medically screened. sb4 15:36 Data reviewed: vital signs, nurses notes, EMS record, lab test result(s), EKG, sb4 radiologic studies, and as a result, I will discharge patient. Counseling: I had a detailed discussion with the patient and/or guardian regarding the historical points, exam findings, and any diagnostic results supporting the discharge/admit diagnosis, the presence of at least one elevated blood pressure reading (>120/80) during this emergency department visit, lab results, radiology results, the need for outpatient follow up, to return to the emergency department if symptoms worsen or persist or if there are any questions or concerns that arise at home. 03/07 13:45 Order name: Basic Metabolic Panel; Complete Time: 15:21 sb4 03/07 13:45 Order name: CBC with Diff; Complete Time: 14:53 sb4 03/07 13:45 Order name: Hepatic Function; Complete Time: 15:21 sb4 03/07 13:45 Order name: Magnesium; Complete Time: 15:21 sb4 03/07 13:45 Order name: Protime (+inr); Complete Time: 14:58 sb4 03/07 13:45 Order name: Ptt, Activated; Complete Time: 14:58 sb4 03/07 13:45 Order name: Troponin High Sensitivity; Complete Time: 15:21 sb4 03/07 13:45 Order name: UDS; Complete Time: 15:03 sb4 03/07 13:45 Order name: Urinalysis w/ reflexes; Complete Time: 14:53 sb4 03/07 13:45 Order name: CT Head Brain wo Cont; Complete Time: 15:10 sb4 03/07 13:45 Order name: Chest Single View XRAY; Complete Time: 15:18 sb4 03/07 13:45 Order name: Cardiac monitoring; Complete Time: 16:05 sb4 03/07 13:45 Order name: EKG - Nurse/Tech; Complete Time: 14:51 sb4 03/07 13:45 Order name: IV Saline Lock; Complete Time: 14:43 sb4 03/07 13:45 Order name: Labs collected and sent; Complete Time: 14:43 sb4 03/07 13:45 Order name: O2 Per Protocol; Complete Time: 14:43 sb4 03/07 13:45 Order name: O2 Sat Monitoring; Complete Time: 14:43 sb4 EC:51 Rate is 85 beats/min. Rhythm is regular, Normal Sinus Rhythm. UT interval is normal at sb4 112 msec. QRS interval is normal at 90 msec. QT interval is normal at 364 msec. No Q waves. T waves are Normal. No ST changes noted. Clinical impression: Normal ECG and No evidence of ischemia. Interpreted by me. Reviewed by me. Administered Medications: 14:46 Drug: NS 0.9% IV 1000 ml IV at 1 bolus Per protocol; 1000 mL bolus Route: IV; Rate: 1 me1 bolus; Site: right antecubital; 16:05 Follow up: Response: No adverse reaction; IV Status: Completed infusion; IV Intake: me1 1000ml Disposition: 17:44 Co-signature as Attending Physician, Igor Roberts MD I reviewed the patient's care rn provided by the Advanced Practice Provider and agree with the diagnosis and treatment plan. Disposition Summary: 03/07/24 15:37 Discharge Ordered Notes: Location: Home sb4 Problem: new sb4 Symptoms: have improved sb4 Condition: Stable sb4 Diagnosis - Heat syncope sb4 Followup: sb4 - With: Private Physician - When: As needed - Reason: Recheck today's complaints, Re-evaluation by your physician Discharge Instructions: - Discharge Summary Sheet sb4 - Syncope, [id number] sb4 - Heat Exhaustion sb4 Forms: - Work release form sb4 - Patient Portal Instructions sb4 - Leadership Thank You Letter sb4 Signatures: Dispatcher [employer] EDIgor Eubanks MD MD rn Brown, Sophia PAShayC PAIvet sb4 Valentine Jimenez RN RN me1 Corrections: (The following items were deleted from the chart) 13:46 13:46 BASIC METABOLIC PANEL+C.LAB.BRZ ordered. EDMS EDMS 13:46 13:46 CBC+H.LAB.BRZ ordered. EDMS EDMS 13:46 13:46 HEPATIC FUNCTION+C.LAB.BRZ ordered. EDMS EDMS 13:46 13:46 MAGNESIUM+C.LAB.BRZ ordered. EDMS EDMS 13:46 13:46 PROTIME (+INR)+COAG.LAB.BRZ ordered. EDMS EDMS 13:46 13:46 PTT, ACTIVATED+COAG.LAB.BRZ ordered. EDMS EDMS 13:46 13:46 Troponin High Sensitivity+C.LAB.BRZ ordered. EDMS EDMS 13:46 13:46 URINE DRUG SCREEN+UC.LAB.BRZ ordered. EDMS EDMS 13:46 13:46 Urinalysis+U.LAB.BRZ ordered. EDMS EDMS
--- NOTE | 2024-03-07 15:38 | ER ---
Nurse's Notes [facility] Name: Derek Curry Age: 38 yrs Sex: Male : 1985 Arrival Date: 03/07/2024 Time: 13:38 Bed 11 Private MD: Diagnosis: Heat syncope Presentation: 03/07 14:08 Chief complaint: EMS states: toned out for heat exhaustion with syncopal episode, LOC me1 but no fall. Patient had sat down when he started feeling bad before he passed out. Initially patient was slow to respond but is more alert and responding better on arrival to ER. Coronavirus screen: Vaccine status: Patient reports receiving the 2nd dose of the covid vaccine. Ebola Screen: No symptoms or risks identified at this time. Initial Sepsis Screen: Does the patient meet any 2 criteria? Systolic BP < 90 mmHg. No. Patient's initial sepsis screen is negative. Does the patient have a suspected source of infection? No. Patient's initial sepsis screen is negative. Risk Assessment: Do you want to hurt yourself or someone else? Patient reports no desire to harm self or others. Onset of symptoms was March 07, 2024 at 13:00. 14:08 Method Of Arrival: EMS: [facility] me1 14:08 Acuity: ANNMARIE 3 me1 Triage Assessment: 14:12 General: Appears ill, well developed, well nourished, Behavior is calm, cooperative, me1 appropriate for age, flat, Reports got too hot, sat down then passed out for an undetermined amount of time. No fall. No c/o pain. Pain: Denies pain. EENT: No signs and/or symptoms were reported regarding the EENT system. Neuro: Level of Consciousness is awake, alert, obeys commands, Oriented to person, place, time, situation, Appropriate for age. Neuro: Reports a syncopal episode. Cardiovascular: Patient's skin is warm and dry. Respiratory: Airway is patent Trachea midline Respiratory effort is even, unlabored, Respiratory pattern is regular, symmetrical. GI: No signs and/or symptoms were reported involving the gastrointestinal system. : No signs and/or symptoms were reported regarding the genitourinary system. Derm: Skin is intact, Skin is clammy, Skin is pale. Musculoskeletal: No signs and/or symptoms reported regarding the musculoskeletal system. Historical: - Allergies: 14:12 No Known Allergies; me1 - Home Meds: 14:12 None [Active]; me1 - PMHx: 14:12 None; me1 - Immunization history:: Adult Immunizations up to date. - Infectious Disease History:: Denies. - Social history:: Smoking status: Patient denies any tobacco usage or history of. Screenin:14 [facility] ED Fall Risk Assessment (Adult) History of falling in the last 3 months, me1 including since admission No falls in past 3 months (0 pts) Confusion or Disorientation No (0 pts) Intoxicated or Sedated No (0 pts) Impaired Gait No (0 pts) Mobility Assist Device Used No (0 pt) Altered Elimination No (0 pt) Score/Fall Risk Level 0 - 2 = Low Risk Maintained a safe environment, Provided non-skid footwear, Hourly rounding (assess needs \T\ fall precautionary measures) done. Abuse screen: Denies threats or abuse. Nutritional screening: No deficits noted. Tuberculosis screening: No symptoms or risk factors identified. Assessment: 14:14 General: See triage assessment. . me1 Vital Signs: 14:08 BP 135 / 89; Pulse 84; Resp 18; Temp 98.9; Pulse Ox 100% on R/A; Weight 81.65 kg; me1 Height 5 ft. 10 in. ; Pain 0/10; 14:45 BP 140 / 96; Pulse 77; Resp 16; Pulse Ox 100% ; me1 15:15 BP 144 / 91; Pulse 77; Resp 14; Pulse Ox 100% on R/A; me1 16:05 BP 145 / 93; Pulse 88; Resp 16; Temp 98.4; Pulse Ox 99% ; me1 14:08 Body Mass Index 25.83 (81.65 kg, 177.8 cm) me1 14:08 Pain Scale: Adult me1 ED Course: 13:45 Patient arrived in ED. sb4 13:45 Mervat Ospina PA-C is PHCP. sb4 13:45 Igor Roberts MD is Attending Physician. sb4 14:02 CT Head Brain wo Cont In Process Unspecified. EDMS 14:08 Valentine Jimenez, MARLYS is Primary Nurse. me1 14:12 Chest Single View XRAY In Process Unspecified. EDMS 14:12 Triage completed. me1 14:12 Arm band placed on Patient placed in an exam room. me1 14:14 Patient has correct armband on for positive identification. Bed in low position. Call me1 light in reach. Side rails up X2. Provided Education on: POC. Verbalized understanding. . Client placed on continuous cardiac and pulse oximetry monitoring. NIBP monitoring applied. Pulse ox on. NIBP on. 14:14 No provider procedures requiring assistance completed. me1 14:42 Initial lab(s) drawn, by me, sent to lab. Urine collected: clean catch specimen, clear. me1 Inserted saline lock: 22 gauge in right antecubital area, using aseptic technique. 14:43 Basic Metabolic Panel Sent. me1 14:43 CBC with Diff Sent. me1 14:43 Hepatic Function Sent. me1 14:43 Magnesium Sent. me1 14:43 Protime (+inr) Sent. me1 14:43 Ptt, Activated Sent. me1 14:43 Troponin High Sensitivity Sent. me1 14:43 UDS Sent. me1 14:43 Urinalysis w/ reflexes Sent. me1 16:06 IV discontinued, intact, bleeding controlled, No redness/swelling at site. Pressure me1 dressing applied. Administered Medications: 14:46 Drug: NS 0.9% IV 1000 ml IV at 1 bolus Per protocol; 1000 mL bolus Route: IV; Rate: 1 me1 bolus; Site: right antecubital; 16:05 Follow up: Response: No adverse reaction; IV Status: Completed infusion; IV Intake: me1 1000ml Medication: 14:14 VIS not applicable for this client. me1 Intake: 16:05 IV: 1000ml; Total: 1000ml. me1 Outcome: 15:37 Discharge ordered by . kory 16:06 Discharged to home ambulatory, with friend, me1 16:06 Condition: stable 16:06 Discharge instructions given to patient, friend, Instructed on discharge instructions, follow up and referral plans. Demonstrated understanding of instructions, follow-up care, 16:06 Patient left the ED. me1 Signatures: Dispatcher [employer] Mervat Marx, PAShayC PAShayC Valentine Doss, RN RN me1
[2024-03-07 17:06] VITALS: BP 145/93; TEMP 98.4; O2SAT 99
--- NOTE | 2024-03-08 16:59 | EKG ---
Test Date: 2024-03-07 Test Time: 14:50:06 Train Inspector: EBONY MEASUREMENT RESULTS: Intervals: Rate: 85 IN: 112 QRSD: 90 QT: 364 QTc: 433 [place]: P: 80 IN: 112 QRS: 85 T: 79 INTERPRETIVE STATEMENTS: Normal sinus rhythm Normal ECG No previous ECG available for comparison Electronically Signed On 03-08-24 16:56:52 CDT by Kofi Coleman
== END 2024-03-07 16:06 | disposition home or self-care (01) ==
LOC: ER 13:38
DX: T67.1XXA Heat syncope, initial encounter (principal)
CPT/HCPCS: 36415; 70450; 71045; 80048; 80076; 80307; 81003; 83735; 84484; 85025; 85610; 85730; 93005; J7030